=== PATIENT | male | born 1975 | race Caucasian/White ===

== ENCOUNTER → 2020-09-10 | Outpatient (CLI) | payer OTHER ==
--- NOTE | 2020-09-10 11:19 | Diagnostic Imaging Report ---
INDICATION: DDU-shoulder injury arthritis lungs are bad unable to stand long time. COMPARISON: None FINDINGS: Frontal and lateral views of the chest demonstrate normal heart size and pulmonary vascularity. The lungs are clear. There are no signs of infiltrate, pleural effusions or pneumothoraces. The visualized osseous structures show no acute abnormalities. IMPRESSION: 1. No acute process. No signs of infiltrates, effusions or pneumothoraces. Dictated by: Dictated on workstation # [id number]
--- NOTE | 2020-09-10 11:23 | Diagnostic Imaging Report ---
INDICATION: Back pain. COMPARISON: None FINDINGS: Frontal and lateral views of the lumbar spine were obtained. Alignment and vertebral heights are maintained. There is no fracture or destructive process. Mild multilevel degenerative disease is noted in the lumbar spine. Limited views of the abdomen demonstrate nonobstructive bowel gas pattern. IMPRESSION: 1. No acute fracture or dislocation of the lumbar spine. 2. Mild multilevel degenerative changes. Dictated by: Dictated on workstation # [id number]
== END ==
LOC: RAD 10:12
PROVIDERS: ATTEND Family Medicine
DX: Z02.71 Encounter for disability determination (principal); M47.816 Spondylosis without myelopathy or radiculopathy, lumbar region; S49.90XA Unspecified injury of shoulder and upper arm, unspecified arm, initial encounter; X58.XXXA Exposure to other specified factors, initial encounter
CPT/HCPCS: 71046; 72100

== ENCOUNTER 2023-01-16 20:51 | Emergency (ER) | payer SELFPAY ==
[~2023-01-16] VITALS: Ht 167.7 cm; Wt 60.0 kg
[2023-01-16] MEDS ORDERED: HOLD METFORMIN - RECEIVED CONTRAST 20 ML VIAL IV SCH (21:00)
[2023-01-16] MEDS ORDERED: NS 100 ML (IVPB) BAG IV ONE (21:00)
[2023-01-16] MEDS ORDERED: IOHEXOL 350 MG/ML 100 ML (OMNIPAQUE 350) VIAL IV ONE (21:00)
--- NOTE | 2023-01-16 21:01 | ED Syncope ---
General Chief Complaint: Dizziness/Syncope Stated Complaint: SYNCOPAL EPISODE Source of Information: Patient, EMS Exam Limitations: No Limitations History of Present Illness Date Seen by Provider: Jan 16, 2023 Time Seen by Provider: 20:49 Initial Comments 47-year-old male presents the emergency department today after syncopal episode. He was standing in his kitchen sink doing dishes when he suddenly felt lightheaded and passed out. This was witnessed and only lasted a few seconds. He was diaphoretic upon EMS arrival. He denies any chest pain or shortness of breath just prior to his syncopal episode. He feels back to normal now outside of some mild shortness of breath, feeling like he cannot take a deep breath. He has no pain. He has never had similar symptoms in the past. He has been taking oxycodone and hydrocodone which are not prescribed to him for some jaw pain that has been going on chronically. He states he needs to have some teeth pulled. All other systems reviewed and negative except documented per HPI. Voice recognition software was used to help create this chart Allergies and Home Medications Allergies Coded Allergies: No Known Allergies (Verified Allergy, Unknown, 05/10/06) Patient Home Medication List Home Medication List Reviewed: Yes Review of Systems Constitutional: see HPI Past Nnvndrg-Ouyvcw-Wacgav Hx Patient Social History Tobacco Use?: Yes Use of E-Cig and/or Vaping dev: No Substance use?: No Alcohol Use?: No Family Medical History Reviewed Nursing Family Hx Physical Exam Vital Signs Vital Signs - First Documented 01/16/23 20:51 Temp 36.0 Pulse 80 Resp 16 B/P (MAP) 107/76 (86) Pulse Ox 100 O2 Delivery Room Air Capillary Refill : Height, Weight, BMI Height: '" Weight: lbs. oz. kg; BMI Method: General Appearance: No Apparent Distress, WD/WN HEENT: PERRL/EOMI, TMs Normal, Normal ENT Inspection, Pharynx Normal Neck: Full Range of Motion, Normal Inspection, Non Tender, Supple Cardiovascular: Regular Rate, Rhythm, No Murmur, Normal Peripheral Pulses Respiratory: Chest Non Tender, Lungs Clear, Normal Breath Sounds, No Accessory Muscle Use, No Respiratory Distress Gastrointestinal: Normal Bowel Sounds, No Organomegaly, Non Tender, Soft Extremities: Normal Capillary Refill, Normal Inspection, Normal Range of Motion, Non Tender, No Calf Tenderness Neurologic/Psychiatric: Alert, Oriented x3, No Motor/Sensory Deficits, Normal Mood/Affect, insurance consultant II-XII Norm as Tested Cranial Nerves: Normal Hearing, Normal Speech Motor/Sensory: No Motor Deficit, No Sensory Deficit Skin: Normal Color, Warm/Dry Progress/Results/Core Measures Results/Orders Lab Results Laboratory Tests Test 01/16/23 21:38 Range/Units White Blood Count 7.3 4.3-11.0 10^3/uL Red Blood Count 4.24 L 4.30-5.52 10^6/uL Hemoglobin 13.2 L 13.3-17.7 g/dL Hematocrit 38 L 40-54 % Mean Corpuscular Volume 91 80-99 fL Mean Corpuscular Hemoglobin 31 25-34 pg Mean Corpuscular Hemoglobin Concent 34 32-36 g/dL Red Cell Distribution Width 13.2 10.0-14.5 % Platelet Count 366 130-400 10^3/uL Mean Platelet Volume 9.8 9.0-12.2 fL Immature Granulocyte % (Auto) 0 % Neutrophils (%) (Auto) 55 42-75 % Lymphocytes (%) (Auto) 29 12-44 % Monocytes (%) (Auto) 13 H 0-12 % Eosinophils (%) (Auto) 2 0-10 % Basophils (%) (Auto) 1 0-10 % Neutrophils # (Auto) 4.0 1.8-7.8 10^3/uL Lymphocytes # (Auto) 2.1 1.0-4.0 10^3/uL Monocytes # (Auto) 1.0 0.0-1.0 10^3/uL Eosinophils # (Auto) 0.2 0.0-0.3 10^3/uL Basophils # (Auto) 0.1 0.0-0.1 10^3/uL Immature Granulocyte # (Auto) 0.0 0.0-0.1 10^3/uL Sodium Level 137 135-145 MMOL/L Potassium Level 3.7 3.6-5.0 MMOL/L Chloride Level 104 98-107 MMOL/L Carbon Dioxide Level 23 21-32 MMOL/L Anion Gap 10 5-14 MMOL/L Blood Urea Nitrogen 18 7-18 MG/DL Creatinine 1.21 0.60-1.30 MG/DL Estimat Glomerular Filtration Rate 75 BUN/Creatinine Ratio 15 Glucose Level 49 *L 70-105 MG/DL Calcium Level 9.6 8.5-10.1 MG/DL Corrected Calcium 9.4 8.5-10.1 MG/DL Total Bilirubin 0.5 0.1-1.0 MG/DL Aspartate Amino Transf (AST/SGOT) 27 5-34 U/L Alanine Aminotransferase (ALT/SGPT) 24 0-55 U/L Alkaline Phosphatase 66 40-136 U/L Total Protein 6.9 6.4-8.2 GM/DL Albumin 4.2 3.2-4.5 GM/DL My Orders Orders - STACY WRIGHT DO Chest 1 View, Ap/Pa Only (01/16/23 20:57) Ekg Tracing (01/16/23 20:57) Cbc With Automated Diff (01/16/23 20:57) Comprehensive Metabolic Panel (01/16/23 20:57) Ct Angio Chest W (01/16/23 20:57) Iohexol Injection (Omnipaque 350 Mg/Ml 1 (01/16/23 21:00) Received Contrast (Hold Metformin- Contr (01/16/23 21:00) Ns (Ivpb) (Sodium Chloride 0.9% Ivpb Bag (01/16/23 21:00) Accucheck Stat ONCE (01/16/23 22:55) Medications Given in ED Current Medications Medications Dose Ordered Sig/Paul Route Start Time Stop Time Status Last Admin Dose Admin Iohexol 100 ml ONCE ONCE IV 01/16/23 21:00 01/16/23 21:01 DC 01/16/23 21:16 75 ML Sodium Chloride 100 ml ONCE ONCE IV 01/16/23 21:00 01/16/23 21:01 DC 01/16/23 21:16 80 ML Vital Signs/I&O 01/16/23 01/16/23 20:51 20:51 Temp 36.0 Pulse 80 Resp 16 B/P (MAP) 107/76 (86) Pulse Ox 100 O2 Delivery Room Air Comment Sinus rhythm at 71 bpm. Normal intervals. Normal axis. No ST or T wave abnormalities. Single premature atrial contraction. Departure Communication (Admissions) Patient is hemodynamically stable. Glucose in route was reported to be 115. Once labs came back his glucose was 49. He was still feeling lightheaded. His EKG is nonischemic with sinus rhythm with single PAC. Other labs are unremarkable. He does not have a history of diabetes or hypoglycemia. States has been eating regularly. We gave him some food here and his blood sugar maintained stable thereafter. He felt much better. He is discharged home with close primary care follow-up. Impression Primary Impression: Hypoglycemia Additional Impression: Syncope Qualified Codes: R55 - Syncope and collapse Disposition: HOME, SELF-CARE Condition: Stable Departure-Patient Inst. Referrals: NO,LOCAL PHYSICIAN (PCP/Family) Primary Care Physician Patient Instructions: Low Blood Sugar, Adult ED, Syncope (Fainting) (DC) Add. Discharge Instructions: Your blood sugar was low here today. This improved after eating. Is unclear what caused this at this time however you should follow-up with your primary doctor for further evaluation and treatment recommendations. Return to the emergency department for any severe concerns. Maintain a normal diet. All discharge instructions reviewed with patient and/or family. Voiced un derstanding. STACY WRIGHT DO Jan 16, 2023 21:01
[2023-01-16 21:43] LABS: BASOPHILS # (AUTO) 0.1 10^3/uL (0.0-0.1); BASOPHILS % (AUTO) 1 % (0-10); EOSINOPHILS # (AUTO) 0.2 10^3/uL (0.0-0.3); EOSINOPHILS % (AUTO) 2 % (0-10); HEMATOCRIT 38 % (40-54); HEMOGLOBIN 13.2 g/dL (13.3-17.7); LYMPHOCYTES # (AUTO) 2.1 10^3/uL (1.0-4.0); LYMPHOCYTES % (AUTO) 29 % (12-44); MEAN CORPUSCULAR HEMOGLOBIN 31 pg (25-34); MEAN CORPUSCULAR HGB CONC 34 g/dL (32-36); MEAN CORPUSCULAR VOLUME 91 fL (80-99); MEAN PLATELET VOLUME 9.8 fL (9.0-12.2); MONOCYTES % (AUTO) 13 % (0-12); NEUTROPHILS % (AUTO) 55 % (42-75); PLATELET COUNT 366 10^3/uL (130-400); WHITE BLOOD COUNT 7.3 10^3/uL (4.3-11.0)
--- NOTE | 2023-01-16 21:47 | Diagnostic Imaging Report ---
INDICATION: syncope. TECHNIQUE: Single view chest 9:15 PM. CORRELATION STUDY: None FINDINGS: The heart size, mediastinal configuration and pulmonary vascularity are within normal limits. The lungs are clear with no consolidating infiltrate. There is no significant effusion or pneumothorax. IMPRESSION: 1. Negative appearing portable chest. Dictated by: Dictated on workstation # [id number]
[2023-01-16 21:53] LABS: ALBUMIN 4.2 GM/DL (3.2-4.5); POTASSIUM 3.7 MMOL/L (3.6-5.0)
[2023-01-16 21:54] LABS: CALCIUM 9.6 MG/DL (8.5-10.1)
[2023-01-16 21:55] LABS: TOTAL PROTEIN 6.9 GM/DL (6.4-8.2)
[2023-01-16 21:57] LABS: BILIRUBIN,TOTAL 0.5 MG/DL (0.1-1.0)
[2023-01-16 21:59] LABS: CREATININE SERUM 1.21 MG/DL (0.60-1.30)
--- NOTE | 2023-01-16 22:05 | Diagnostic Imaging Report ---
PROCEDURE: CT angiography of the chest with contrast. TECHNIQUE: Multiple contiguous axial images were obtained through the chest after uneventful bolus administration of intravenous contrast. 3D reconstructed CTA MIP acquisitions were also performed. Auto Exposure Controls were utilized during the CT exam to meet ALARA standards for radiation dose reduction. INDICATION: 47-year-old male, passed out while washing dishes. CORRELATION: None. FINDINGS: Heart size enlarged without disproportionate right heart strain. Thoracic aorta unremarkable. No pathologically enlarged mediastinal lymph nodes. Calcified right hilar lymph nodes. There is no pulmonary artery filling defect to suggest pulmonary embolism. The lung peres are clear of infiltrate. No significant pleural effusion. The visualized portions of the upper abdomen are unremarkable. The visualized osseous structures demonstrate no acute finding. IMPRESSION: No CT evidence for pulmonary embolism. Negative for acute aortic syndrome. Dictated by: Dictated on workstation # [id number]
[2023-01-16 23:00] VITALS: BP 105/76
== END 2023-01-16 23:00 | disposition home or self-care (01) ==
LOC: EDUNIT# 20:51 → ER 20:53
DX: E16.2 Hypoglycemia, unspecified (principal); R68.84 Jaw pain; G89.29 Other chronic pain; Z79.891 Long term (current) use of opiate analgesic; Z28.310 Unvaccinated for COVID-19
CPT/HCPCS: 36415; 71045; 71275; 80053; 82947; 85025; 93005

== ENCOUNTER → 2023-03-17 | Outpatient (CLI) | payer OTHER ==
[2023-03-17 10:39] VITALS: BP 122/69
--- NOTE | 2023-03-17 17:20 | Cardiology Stress Test Report ---
Stress Test Report Date of Procedure/Referring: Date of Procedure: Mar 17, 2023 PCP No,Local Physician Admitting Physician Admitting Physician: Attending Physician: Fabiola Crandall MD Indications: SOB Baseline Heart Rate: 83 Baseline Blood Pressure: Blood Pressure Systolic: 122 Blood Pressure Diastolic: 69 Baseline EKG: Baseline EKG: NSR Summary/Conclusion: Summary: In summary, the patient started exercising with a baseline heart rate, blood pressure and EKG mentioned above Patient was able to exercise for a total of 11 minutes on Nilesh protocol, METs 12.1 Maximum heart rate 158 Maximum blood pressure 146/73 Stress EKG, Minimal nondiagnostic changes Recovery EKG , Return to baseline Conclusion: Excellent exercise tolerance for a total of 11 minutes on standard Nilesh protocol, 12.1 METS achieving 90% of maximal expected heart rate Appropriate heart rate and blood pressure response to exercise return to baseline during recovery Oxygen saturation continue to be over 95% during stress test Minimal nondiagnostic EKG changes with exercise return to baseline during recovery Copy Copies To 1: [facility]/JACKSON FORTUNE MD Mar 17, 2023 17:20
== END ==
LOC: CARD 10:14
PROVIDERS: ATTEND Student in an Organized Health Care Education/Training Program
DX: R06.02 Shortness of breath (principal)
CPT/HCPCS: 93017